=== PATIENT | female | born 1985 | race African-American/Black ===

== ENCOUNTER 2025-08-23 00:06 | Emergency (ER) | payer SELFPAY ==
[~2025-08-23] VITALS: Ht 162.6 cm; Wt 75.3 kg
[2025-08-23 01:11] VITALS: BP 148/97; TEMP 98.3; O2SAT 99
[2025-08-23] MEDS ORDERED: CYCL10TA9 PO (01:51)
[2025-08-23] MEDS ORDERED: ACETAMINOPHEN ES 500 MG TABLET ONE (02:02)
[2025-08-23] MEDS ORDERED: KETOROLAC TROMETHAMINE INJ 30 MG/ML VIAL ONE (02:02)
[2025-08-23] MEDS: ACETAMINOPHEN 325 MG TABLET PO ONE (02:10)
[2025-08-23] MEDS: KETOROLAC TROMETHAMINE INJ 30 MG/ML VIAL IM ONE (02:10)
== END 2025-08-23 02:11 | disposition home or self-care (01) ==
LOC: ER 00:28
DX: S16.1XXA Strain of muscle, fascia and tendon at neck level, initial encounter (principal); V89.2XXA Person injured in unspecified motor-vehicle accident, traffic, initial encounter; Y93.89 Activity, other specified; Y92.415 Exit ramp or entrance ramp of street or highway as the place of occurrence of the external cause; Y99.9 Unspecified external cause status
CPT/HCPCS: 99283; 96372; J1885